=== PATIENT | female | born 1975 | race African-American/Black ===

== ENCOUNTER 2018-04-30 15:59 | Emergency (ER) | payer SELFPAY ==
[~2018-04-30] VITALS: Ht 170.2 cm; Wt 112.7 kg
[2018-04-30] MEDS ORDERED: ONDANSETRON HCL 4 MG/2 ML VIAL IV ONE (16:45)
[2018-04-30] MEDS ORDERED: HYDROmorphone HCL 2 MG/ML VL IV ONE (16:45)
[2018-04-30] MEDS ORDERED: SODIUM CHLORIDE 0.9% 1,000 ML IV ONE ×2 (16:45→19:30)
[2018-04-30] MEDS ORDERED: IOHEXOL 300 MG/ML 100ML BOTTLE IJ ONE (17:02)
[2018-04-30] MEDS ORDERED: ETOMIDATE (2MG/ML) 20ML VIAL IV ONE (19:30)
[2018-04-30] MEDS ORDERED: fentaNYL CITRATE 100 MCG/2 ML VL IV ONE (19:30)
[2018-04-30] MEDS ORDERED: IOHEXOL 350 MG/ML 100ML IJ ONE (19:33)
[2018-04-30 21:25] VITALS: BP 138/87
== END 2018-04-30 20:08 | disposition short-term general hospital (02) ==
LOC: ER 15:59 → EDBD 15:59 → ER 20:08
DX: S82.002A Unspecified fracture of left patella, initial encounter for closed fracture (principal); S82.142A Displaced bicondylar fracture of left tibia, initial encounter for closed fracture; W19.XXXA Unspecified fall, initial encounter; Y93.89 Activity, other specified; Y99.8 Other external cause status; Y92.89 Other specified places as the place of occurrence of the external cause
CPT/HCPCS: 27550; 73560; 73700; 73706; 96374; 96375; 99152; 99291; J1170; J2405; J3010; J7030; Q9967